=== PATIENT | male | born 1980 | race American Indian/Alaskan Native ===

== ENCOUNTER 2016-10-21 21:07 | Emergency (ER) | payer MEDICARE ==
[2016-10-21 22:51] LABS: Urine Drugs of Abuse Note Disclamer
[2016-10-21 23:04] LABS: Bilirubin,Urine SM (Negative); Blood,Urine NEG (Negative); Ketones,Urine TR mg/dL (Negative); Leukocyte Esterase,Urine NEG (Negative); Mucus,Urine 3+ /HPF; Nitrite,Urine NEG (Negative); Urobilinogen,Urine < 2.0 mg/dL (<2.0)
[2016-10-22 00:10] LABS: Basophils % (Auto) 0.4 % (0.0-1.8); Eosinophils % (Auto) 11.4 % (0.0-4.3); Hematocrit 44.8 % (35.5-45.6); Hemoglobin 15.1 gm/dl (11.8-15.2); Mean Corpuscular HGB Conc 34 % (32-34); Mean Corpuscular Hemoglobin 31 pg (28-32); Mean Corpuscular Volume 93 fl (84-94); Platelet Count 492 K/mm3 (140-440); Red Blood Count 4.84 M/mm3 (3.65-5.03); Red Cell Distribution Width 14.2 % (13.2-15.2); White Blood Count 9.5 K/mm3 (4.5-11.0)
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
[2016-10-22 00:30] LABS: Anion Gap 19 mmol/L; BUN/Creatinine Ratio 6.66; Blood Urea Nitrogen 6 mg/dL (9-20); Calcium 9.3 mg/dL (8.4-10.2); Carbon Dioxide 27 mmol/L (22-30); Chloride 100.5 mmol/L (98-107); Glucose 98 mg/dL (75-100); Potassium 4.1 mmol/L (3.6-5.0); Sodium 142 mmol/L (137-145)
[2016-10-22 07:49] VITALS: BP 136/80
--- NOTE | 2016-10-22 13:56 | Consultation ---
History of Present Illness - Reason for Consult Consult date: 10/22/16 Reason for consult: Mental Health Evaluation Requesting physician: AMBIKA ZUNIGA - Chief Complaint Chief complaint: "I don't know why I did it" - History of Present Psychiatric Illness The patient is a 36-year-old male presenting with a chief complaint of aggressive behavior. Today patient is calm and cooperative during the assessment. He did admit to being aggressive with his mother. He stated that it could be the voices, but he was not sure. He stated that he experience paranoia often especially when the voices are active. He stated that he felt like his mother was talking to him about homosexual content and felt disrespected. He stated that he feel bad about the situation, but stated, "I need some help." He stated being noncompliant with his medications and used to receive "some type" of monthly injection. He stated that it's been a "long time" since his last appt with a psychiatrist. He denies SI/HI's, VH's. He stated sleeping well along with having a good appetite. He denies recreational drug use and excessive alcohol consumption (etoh). Medications and Allergies Allergies Allergy/AdvReac Type Severity Reaction Status Date / Time olanzapine [From Zyprexa] AdvReac Unknown Verified 10/21/16 22:08 Home Medications Medication Instructions Recorded Confirmed Last Taken Type No Known Home Medications [No 10/21/16 10/21/16 Unknown History Reported Home Medications] Past psychiatric history - Past Medical History Past Medical History: No medical history Past Surgical History: No surgical history - past Psychiatric treatment and history Psych: Schizophrenia psychiatric treatment history: Inpatient psy services in [place]. Denies fam psy hx. - Social History Social history: lives with family ([employer] grad[employer] and some college) Mental Status Exam - Vital signs Last Vital Signs Temp 96.7 F L 10/22/16 07:48 Pulse 66 10/22/16 07:48 Resp 16 10/22/16 07:48 BP 136/80 10/22/16 07:48 Pulse Ox 99 10/21/16 23:51 - Exam Narrative exam: ROS: (+) psychosis MSE: Appearance: calm, cooperative Behavior: regular eye contact Speech: regular rate and tone Mood: "okay" Affect: labile Thought Process: circumstantial Thought Content: denies SI/HI and VHs, delusional, paranoia Motor Activity: sitting up in the bed Cognition: A/Ox 3 Insight: limited Judgment: limited Results Result Diagrams: 10/21/16 23:43 10/21/16 23:43 Abnormal lab results 10/21/16 10/21/16 Range/Units 23:43 23:43 Plt Count 492 H (140-440) K/mm3 Eos % (Auto) 11.4 H (0.0-4.3) % Eos # 1.1 H (0.0-0.4) K/mm3 BUN 6 L (9-20) mg/dL All other labs normal. Assessment and Plan Assessment and plan: Impression: Historical Dx: Schizophrenia Paranoid Type. Delusional thought content. Today patient is calm and cooperative during the assessment. DDx: R/O Bipolar, Schizoaffective DO Recommendation/Plan: Continue 1013 with placement to inpatient psy services.
== END 2016-10-22 10:00 ==
LOC: EEVIPCON 21:07 → ED 21:07
DX: F20.9 Schizophrenia, unspecified (principal); F22 Delusional disorders; F17.200 Nicotine dependence, unspecified, uncomplicated; Z88.8 Allergy status to other drugs, medicaments and biological substances
CPT/HCPCS: 36415; 80048; 80307; 81001; 85025; 99285; G0480; 80320